=== PATIENT | female | born 1955 | race African-American/Black ===

== ENCOUNTER 2021-10-01 06:30 | Emergency (ER) | payer MEDICARE, MEDICAID ==
[2021-10-01] MEDS ORDERED: HYDROcodone/Acetaminophen 5/325 mg Tablet ONE (07:34)
[2021-10-01] MEDS ORDERED: Cyclobenzaprine 10 MG TAB ONE (07:34)
[2021-10-01] MEDS ORDERED: Ketorolac Tromethamine 30 MG/ML VIAL ONE (07:34)
== END 2021-10-01 09:20 | disposition home or self-care (01) ==
LOC: CSHERS 06:30
DX: S76.012A Strain of muscle, fascia and tendon of left hip, initial encounter (principal); E11.9 Type 2 diabetes mellitus without complications; I10 Essential (primary) hypertension; Z79.4 Long term (current) use of insulin; Z79.82 Long term (current) use of aspirin; Z79.899 Other long term (current) drug therapy; Z79.84 Long term (current) use of oral hypoglycemic drugs
CPT/HCPCS: 36416; 96372; J1885

== ENCOUNTER 2024-05-31 17:07 | Emergency (ER) | payer OTHER ==
[~2024-05-31 17:07] MED LIST: Iopamidol 370 76% 100 ML VIAL ONE
[2024-05-31] MEDS ORDERED: Vancomycin 2 GM in Sodium Chloride 0.9% 500 ML IVPB SCH (18:15)
[2024-05-31 18:18] LABS: Bilirubin Neg (Negative); Blood, Urine 25 (Negative); Clarity Clear (Clear); Glucose, Urine (Dipstick) Normal (Negative); Ketone, Urine Negative (Negative); Leukocyte Negative (Negative); Nitrite Negative (Negative); Protein, Urine (Dipstick) 15 mg/dl (Neg-Trace)
[2024-05-31 18:44] LABS: Bacteria/HPF Rare-Few HPF (None Seen); CAUTI Indications for Culture Dysuria,urgency,freq; RBC/HPF 0-3 HPF (0-3); Squamous Epithelial 0-3 HPF (0-3); Urine Culture Reflex No No; WBC/HPF None Seen HPF (0-3)
[2024-05-31] MEDS ORDERED: Clindamycin/D5W 900 MG in Premix 1 BAG IVPB SCH (19:00)
[2024-05-31 19:19] LABS: #Basophils 0.02 10x3/uL (0.0-0.2); #Eosinphils 0.12 10x3/uL (0.0-0.5); #Monocytes 1.11 10x3/uL (0.0-1.1); %Basophils 0.2 % (0.0-2.0); %Lymphocytes 19.1 % (18.0-47.0); %Monocytes 9.6 % (0.0-10.0); %Neutrophils 69.8 % (40.0-75.0); Hematocrit 35.6 % (34.9-44.5); Hemoglobin 11.8 g/dL (12.0-15.5); Mean Corpuscular HGB CONC 33.1 g/dL (32.0-36.0); Mean Corpuscular Hemoglobin 29.1 pg (27.0-33.0); Mean Corpuscular Volume 87.7 fL (81.6-98.3); Mean Platelet Volume 10.1 fL (7.4-10.4); Platelet Count 250 10x3/uL (150-450); RBC Distribution Width 14.3 % (11.5-14.5); Red Blood Cell (RBC) Count 4.06 10x6/uL (3.90-5.03); White Blood Cell (WBC) Count 11.6 10x3/uL (3.5-10.5)
[2024-05-31 19:32] LABS: ALT (SGPT) 23 U/L (8-55); AST (SGOT) 21 U/L (5-34); Alkaline Phosphatase 78 U/L (40-110); Anion Gap 13 mmol/L (10-20); BUN (Urea Nitrogen) 10 mg/dL (9.8-20.1); Bilirubin, Total 0.3 mg/dL (0.2-1.2); Calc. Creatinine Clearance 0 mL/min (70-130); Calcium 9.9 mg/dL (7.8-10.44); Carbon Dioxide 24 mmol/L (23-31); Chloride 98 mmol/L (98-107); Estimated GFR 56; Globulin 5.4 g/dL (2.4-3.5); Glucose 231 mg/dL (80-115); Potassium 4.3 mmol/L (3.5-5.1); Protein, Total 8.4 g/dL (5.8-8.1); Sodium 131 mmol/L (136-145)
[2024-05-31] MEDS ORDERED: Lidocaine 1% (PF) 30 ML VIAL ONE (22:57)
== END 2024-06-01 03:47 | disposition short-term general hospital (02) ==
LOC: CSHERS 17:07
DX: A41.9 Sepsis, unspecified organism (principal); M25.551 Pain in right hip; I10 Essential (primary) hypertension; E11.9 Type 2 diabetes mellitus without complications
CPT/HCPCS: 20610; 71045; 74177; 77002; 80053; 81001; 83605; 85025; 86140; 87040; 87070; 87077; 87086; 87205; J2001; J3370; J3490; J7030; Q9967; 36415; 51701; 87186; 96374; 96375